=== PATIENT | male | born 1960 | race Hispanic/Latino ===

== ENCOUNTER → 2022-09-16 | Outpatient (CLI) | payer MEDICARE | END | disposition home or self-care (01) | LOC: SHCH 08:01 | PROVIDERS: ATTEND Student in an Organized Health Care Education/Training Program | DX: I25.10 Atherosclerotic heart disease of native coronary artery without angina pectoris (principal); E11.9 Type 2 diabetes mellitus without complications; E78.5 Hyperlipidemia, unspecified | CPT/HCPCS: 93306 ==

== ENCOUNTER 2025-09-18 07:44 | Day surgery (SDC) | payer MEDICARE, MEDICAID ==
[2025-09-17 11:22] LABS: IMMATURE GRANULOCYTE ABSOLUTE 0.03 K/uL (0-1); NUCLEATED RED BLOOD CELLS 0.0 % (0.0-0.19); PLATELET COUNT (AUTO) 210 K/uL (130-400); RED BLOOD CELL COUNT(AUTO) 4.03 MIL/uL (4.50-6.20); RED CELL DISTRIBUTION WIDTH 13.7 % (11.0-15.5); WHITE BLOOD COUNT (AUTO) 7.0 K/uL (4.8-10.8)
[2025-09-17 11:30] LABS: CREATININE 1.7 mg/dL (0.5-1.3); GLOMERULAR FILTR. RATE CALC 44.0 mL/min (>90); GLUCOSE,RANDOM 122.0 mg/dL (70-105); SODIUM SERUM 138.0 mmol/L (136-145); UREA NITROGEN, BLOOD 27.0 mg/dL (7-18)
[2025-09-17 11:35] LABS: INR 1.01 (0.85-1.15)
--- NOTE | 2025-09-17 11:47 | EKG ---
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
[2025-09-17 11:50] VITALS: BP 144/79; PULSE 70; RESP 13; TEMP 97.2
--- NOTE | 2025-09-17 12:57 | HMCIMG ---
EXAM: CHEST RADIOGRAPH, 1 VIEW Technique: Single frontal view. Clinical Information: Preoperative evaluation. Findings: Pulmonary mixon: No pulmonary infiltrates or nodules; symmetrical aeration. Cardiac silhouette: Cardiac size within normal limits. Mediastinum and deepak: No mediastinal mass or widening; retrosternal space clear. Osseous structures: Limited evaluation of ribs and thoracic spine shows no acute abnormality. Miscellaneous: Multilead cardiac pacemaker in situ with leads projecting to the right atrium and right ventricle appearing intact; no pneumothorax or pleural effusion; costophrenic angles are clear. Impression: * No acute cardiopulmonary process. * Multilead cardiac pacemaker with intact-appearing right atrial and right ventricular leads. /[place]
--- NOTE | 2025-09-17 14:14 | NUR ---
REPORT REPORTED POTASSIUM, CREAT, BUN AND h&h TO DR BASILIO ADDISON. OK TO PROCEED
[2025-09-18] VITALS (8 sets, daily range): BP systolic 115–149; BP diastolic 67–80; PULSE 63–69; RESP 10–17; TEMP 97.6
[~2025-09-18] VITALS: Ht 170.2 cm; Wt 77.4 kg
[2025-09-18] MEDS: 0.9%NACL 1000ML 1,000 ML IV SCH (09:35)
[2025-09-18] MEDS ORDERED: HEParin-NS 1,000 UNIT/500 ML 1,000 ML IV ONE (14:06)
[2025-09-18] MEDS ORDERED: NITROGLYCERIN 50MG VIAL ONE (14:06)
[2025-09-18] MEDS ORDERED: LIDOCAINE HCL 400MG/20ML VIAL ONE ×2 (14:06→14:22)
[2025-09-18] MEDS ORDERED: IODIXANOL 320 MG/ML 100 ML VIAL ONE (14:06)
[2025-09-18] MEDS ORDERED: MIDAZOLAM HCL 1 MG/ML 2ML VIAL ONE ×2 (14:34→14:51)
[2025-09-18] MEDS ORDERED: HEParin-NS 1,000 UNIT/500 ML 500 ML IV ONE (14:47)
--- NOTE | 2025-09-18 15:29 | PRN ---
PERIPHERAL ANGIOGRAM PROCEDURE: ATTENDING: Danie Vivas MD DATE: 09/18/2025 INDICATION: Claudication Abnormal lower extremity arterial Dopplers Bilateral lower extremity PAD PROCEDURE: Conscious sedation Ultrasound-guided right common femoral arterial access Abdominal aortogram Selective right and left peripheral angiogram with runoff Catheter placement in the left common femoral artery Perclose hemostasis of the right common femoral artery PROCEDURE DETAILS: Following informed consent the patient was taken to the [address] in the fasting state a condition where he was draped with sterile drapes in usual fashion. Acc ess obtained via the right common femoral artery under ultrasound guidance with 1st 1+ puncture. We placed a six [place] arterial sheath in the right common femoral artery which was then aspirated and flushed. We then performed a limited right iliofemoral angiogram to delineate anatomy. We then advanced an 035 wire into the ascending aorta under fluoroscopic guidance. We then used a five [place] omni catheter which was advanced over the wire into the distal abdominal aorta and performed abdominal aortogram. We then redirected the Omni catheter into the left common femoral artery I then proceeded with left lower extremity peripheral angiogram with runoff. Following this we retracted and removed the Omni catheter and performed a selective right lower extremity angiogram via the six [place] arterial sheath with runoff. Following review of the angiographic images decision was made to terminate the procedure and medically manage patient's infrapopliteal disease. The six [place] arterial sheath was removed under a Perclose with patent hemostasis. Patient tolerated procedure well with no postprocedure complication was transferred to [address] holding in stable condition FINDINGS: Abdominal aorta: Patent LEFT: Common iliac is widely patent External iliac is widely patent Internal iliac is widely patent Common femoral arterial artery is widely patent Profunda is widely patent SFA is widely patent with distal 20 30% stenosis Popliteal artery is widely patent Anterior tibial artery is patent to the foot Tibioperoneal trunk is patent Posterior tibial artery is patent to the foot Peroneal artery has 100% proximal [employer] extending to the foot and does not reconstitute distally Pedal arch is patent/incomplete RIGHT: Common iliac is widely patent External iliac is widely patent Internal iliac is widely patent Common femoral arterial artery is widely patent Profunda is widely patent SFA is widely patent with distal 20 30% stenosis Popliteal artery is widely patent Anterior tibial artery is patent to the foot Tibioperoneal trunk is patent Posterior tibial artery is patent to the foot Peroneal artery has 100% proximal [employer] extending to the foot and does not reconstitute distally Pedal arch is patent/incomplete Complications: None INtervention: None RECOMMENDATIONS: Proceed with medical management Continue aspirin 81 mg q.day statin high-intensity along with aggressive diet an d exercise on a graduated exercise program Current precautions and patient can be discharged this afternoon MD AZAEL Mcginnis JAMES R MD Sep 18, 2025 15:29
[2025-09-18] MEDS ORDERED: DEXTROSE 50%-WATER 50 ML DISP.SYRIN IV PRN (15:30)
[2025-09-18] MEDS ORDERED: GLUCAGON 1MG KIT 1 MG ML IM PRN (15:30)
[2025-09-18] MEDS ORDERED: 0.9%NACL 1000ML 1,000 ML IV SCH (15:30)
--- NOTE | 2025-09-18 17:47 | NUR ---
Right Femoral site clean, dry and intact. No sign of bleeding, bruising or hematoma. Pedal pulses intact to BLE's. Instructed Patient and Family of precautions and expectations until discharge. All voiced understanding.
--- NOTE | 2025-09-18 19:32 | NUR ---
Right Femoral site clean, dry and intact. No sign of bleeding, bruising or hematoma. Instructed Patient and Family of precautions and expectations at discharge. All voiced understanding. Full and complete discharge instructions given verbally and in writing. PIV removed with catheter tip intact. W/C to POV to home.
== END 2025-09-18 19:35 | disposition home or self-care (01) ==
LOC: DAH 07:44
PROVIDERS: ATTEND Student in an Organized Health Care Education/Training Program
DX: E11.51 Type 2 diabetes mellitus with diabetic peripheral angiopathy without gangrene (principal); I70.213 Atherosclerosis of native arteries of extremities with intermittent claudication, bilateral legs; I70.92 Chronic total occlusion of artery of the extremities; I25.10 Atherosclerotic heart disease of native coronary artery without angina pectoris; I48.0 Paroxysmal atrial fibrillation; I12.9 Hypertensive chronic kidney disease with stage 1 through stage 4 chronic kidney disease, or unspecified chronic kidney disease; E11.22 Type 2 diabetes mellitus with diabetic chronic kidney disease; N18.9 Chronic kidney disease, unspecified; I49.5 Sick sinus syndrome; Z95.0 Presence of cardiac pacemaker; E78.5 Hyperlipidemia, unspecified; E86.0 Dehydration; I11.9 Hypertensive heart disease without heart failure; Z89.431 Acquired absence of right foot; Z79.82 Long term (current) use of aspirin; Z79.01 Long term (current) use of anticoagulants; Z83.3 Family history of diabetes mellitus; Z82.49 Family history of ischemic heart disease and other diseases of the circulatory system; Z79.899 Other long term (current) drug therapy; Z98.890 Other specified postprocedural states
CPT/HCPCS: 80048; 85025; 85610; 85730; 36415; 71045; 93005; 75625; 36246; 75716; 99156; 99157 ×2; 96361; 82948; 96360; C1894 ×2; C1760; C1769; J3010; J3490 ×3; J2250 ×2; J1644 ×2; Q9967; A4215; A4222; A4221; A4663; A4216; A4606; A4223 ×3; 36247